=== PATIENT | female | born 1975 | race Two or more races ===

== ENCOUNTER 2017-07-30 23:12 | Emergency (ER) | payer SELFPAY ==
[~2017-07-30] VITALS: Ht 162.6 cm; Wt 73.5 kg
--- NOTE | 2017-07-30 23:20 | NUR ---
BB [id number] FROM HOME. DIZZINESS & NEAR SYNCOPE TODAY. FASTING EARLIER TODAY LAST MEAL @19:30 THIS EVENING. EMS B. PT AOX3 RR EVEN AND UNLABORED. NO SOB NOTED. NAD NOTED. NO NVD AT THIS TIME. PT NOT DIAPHORETIC. PT GOWNED AND PLACED ON MONITOR WAITING FOR MD MONTOYA.
--- NOTE | 2017-07-30 23:26 | NUR ---
DR. GIRARD AT BEDSIDE FOR EVAL.
[2017-07-30] MEDS ORDERED: IV NS 0.9% 1,000 ML BAG IV ONE (23:30)
[2017-07-31] LABS: ABG BASE EXCESS 0.4 mmol/L; ABG OXYGEN SATURATION 59.5 % (92.0-98.5); ABG PH 7.377 (7.350-7.450); ABG PO2 33.3 mmHg (75.0-100.0); COHb 2.3 % (0.5-1.5); MetHb 0.6 % (0.0-1.5); O2Hb 57.8 % (94.0-97.0); SITE, ABG A-Line; VENT MODE, BG room air
[2017-07-31 00:08] LABS: BASOPHILS # (AUTO) 0.1 /CMM (0.0-0.2); BASOPHILS % (AUTO) 0.6 % (0.0-2.0); EOSINOPHILS # (AUTO) 0.1 /CMM (0.0-0.7); EOSINOPHILS % (AUTO) 1.2 % (0.0-6.0); HEMATOCRIT 37 % (33-45); HEMOGLOBIN 11.7 g/dL (11.5-14.8); LYMPHOCYTES # (AUTO) 2.4 /CMM (0.8-4.8); LYMPHOCYTES % (AUTO) 20.5 % (20.0-44.0); MEAN CORPUSCULAR HEMOGLOBIN 23 PG (26.0-33.0); MEAN CORPUSCULAR HGB CONC 31 g/dl (31.0-36.0); MEAN CORPUSCULAR VOLUME 74 fL (82-100); MONOCYTES # (AUTO) 0.5 /CMM (0.1-1.30); NEUTROPHILS # (AUTO) 8.8 /CMM (1.8-8.9); NEUTROPHILS % (AUTO) 73.7 % (43.0-81.0); PLATELET COUNT (AUTO) 424 /CMM (150-450); RDW COEFFICIENT OF VARIATION 20.2 (11.5-15.0); RED BLOOD CELL COUNT(AUTO) 5.06 MIL/uL (4.0-5.2); WHITE BLOOD COUNT (AUTO) 11.9 K/uL (4.3-11.0)
[2017-07-31 00:24] LABS: INR 0.98 (0.87-1.13); PROTHROMBIN TIME 10.5 SECS (9.5-12.7)
[2017-07-31 00:25] LABS: CALCIUM, SERUM 8.7 mg/dL (8.5-10.1); CARBON DIOXIDE 26 mmol/L (21-32); CHLORIDE 99 mmol/L (98-107); CREATININE 0.6 mg/dL (0.6-1.3); POTASSIUM 3.8 mmol/L (3.5-5.1); SODIUM SERUM 136 mmol/L (136-145); UREA NITROGEN, BLOOD 15 mg/dL (7-18)
[2017-07-31 00:27] LABS: TROPONIN I < 0.017 ng/mL (0.00-0.056)
[2017-07-31 00:28] LABS: GLUCOSE 366 mg/dL (74-106)
--- NOTE | 2017-07-31 00:39 | NUR ---
URINE COLLECTED. CALLED LAB FOR VACUUM FILTER OPERATOR.
[2017-07-31 00:58] LABS: APPEARANCE,URINE CLEAR (CLEAR); BILIRUBIN,URINE NEGATIVE (NEGATIVE); BLOOD, URINE TRACE-INTA Ery/uL (NEGATIVE); COLOR,URINE YELLOW (YELLOW); KETONES,URINE 1+ (NEGATIVE); LEUKOCYTE ESTERASE ,URINE NEGATIVE (NEGATIVE); NITRITE, URINE NEGATIVE (NEGATIVE); PROTEIN,URINE NEGATIVE (NEGATIVE); UGLUCOSE 3+ mg/dL (NEGATIVE); UROBILINOGEN,URINE 0.2 EU/dL (0.2)
[2017-07-31 01:00] LABS: PREGNANCY TEST URINE QUAL NEGATIVE (NEGATIVE)
[2017-07-31 01:05] LABS: BACTERIA,URINE Few /HPF (None Seen); RBC,URINE 0-2 /HPF (0-2); SQUAMOUS EPITHELIAL CELL,UR Few /HPF (None Seen); WBC,URINE 0-2 /HPF (0-3)
[2017-07-31] MEDS ORDERED: ACETAMINOPHEN ES 500 MG TABLET ONE (01:59)
[2017-07-31] MEDS ORDERED: METFORMIN 850 MG TABLET PO ONE (02:00)
[2017-07-31] MEDS ORDERED: ACETAMINOPHEN 325 MG TABLET PO ONE (02:00)
--- NOTE | 2017-07-31 02:00 | NUR ---
DR. GIRARD SPEAKING TO REGARDING RESULTS.
[2017-07-31] MEDS ORDERED: METFORMIN 850 MG TABLET ONE (02:01)
--- NOTE | 2017-07-31 02:18 | NUR ---
Patient discharged to home in stable condition. Written and verbal after care instructions given. Patient verbalizes understanding of instruction. IV removed. Catheter intact and site benign. Pressure and 4x4 applied to site. No bleeding noted.ambulatory with a steady gait. instructed not to drive. pt verbalize understanding. accompanied by animal caregiver
[2017-07-31 02:19] VITALS: BP 124/68
== END 2017-07-31 02:20 | disposition home or self-care (01) ==
LOC: ER 23:14
DX: E11.65 Type 2 diabetes mellitus with hyperglycemia (principal); E86.0 Dehydration; R55 Syncope and collapse
CPT/HCPCS: 36415; 36600; 80048; 81001; 82803; 82962 ×2; 84484; 84703; 85025; 85730; 93005; 96360; 96361; 99285; A4606; Z7610; 81000-TC